=== PATIENT | male | born 1970 | race Caucasian/White ===

== ENCOUNTER 2019-02-18 16:07 | Emergency (ER) | payer SELFPAY ==
[2019-02-18 16:22] VITALS: BP 114/72
--- NOTE | 2019-02-18 16:34 | ED Physician Documentation ---
General Adult - HISTORIAN Historian: patient - HPI Stated Complaint: Laceration Chief Complaint: Hand Injury Additional Information: 49-year-old male who stated he The end of his left ring finger on a piece of glass on Wednesday approximately four days ago. Patient stated since that time when he take the bandage off his been having some bleeding from the wound. Patient denies any swelling or erythema to the finger that he is aware. Last tetanus shot was approximately 2 to 3 years ago. Onset: days ago (4 days ago on ) Timing: still present - ROS CONST: no problems - PAST HX Past History: none Surgeries/Procedures: other (inguinal hernia repair) Immunizations: tetanus (2 years ago) Allergies/Adverse Reactions: Allergies Allergy/AdvReac Type Severity Reaction Status Date / Time No Known Allergies Allergy Verified 02/18/19 16:18 Home Medications: Ambulatory Orders Medication Instructions Recorded Amoxicillin [Trimox] 875 mg PO BID 02/18/19 - SOCIAL HX Smoking History: less than 1 pack/day (15 per day) Alcohol Use: rarely Drug Use: none - FAMILY HX Family History: Yes - VITAL SIGNS Vital Signs: Vital Signs Temp Pulse Resp BP Pulse Ox 98.1 F 63 16 114/72 96 02/18/19 16:09 02/18/19 16:09 02/18/19 16:09 02/18/19 16:09 02/18/19 16:09 Progress - Progress Progress: Laceration was cleansed with hexadine. Area was Steri-Strips. Coban was applied to the area for some compression General Adult Physical Exam - PHYSICAL EXAM GENERAL APPEARANCE: no distress RESPIRATORY: no resp distress, chest non-tender, breath sounds normal CVS: reg rate & rhythm, heart sounds normal SKIN: other (patient had a flap wound to the distal left ring finger, [place] surface. No evidence of infection noted at this time.) NEURO: oriented X3 Discharge Clincal Impression: Laceration of finger Qualifiers: Encounter type: initial encounter Finger: ring finger Damage to nail status: without damage Foreign body presence: without foreign body Laterality: left Qualified Code(s): S61.215A - Laceration without foreign body of left ring finger without damage to nail, initial encounter Referrals: Primary Doctor,No [Primary Care Provider] - 2 Days Additional Instructions: Keep steri-strips on finger for 7 days. Keep coban dressing on for the next 3-4 days. Watch for any infection. If you have any further problems to return to the clinc as needed. Condition: Stable Disposition: 01 HOME, SELF-CARE Decision to Admit: NO Date of Decison to Admit: 02/18/19 Decision Time: 16:42
== END 2019-02-18 16:52 | disposition home or self-care (01) ==
LOC: ED 16:07
DX: S61.215A Laceration without foreign body of left ring finger without damage to nail, initial encounter (principal); W25.XXXA Contact with sharp glass, initial encounter
CPT/HCPCS: 99282